=== PATIENT | male | born 1965 ===

== ENCOUNTER 2021-01-29 13:23 | Emergency (ER) | payer OTHER, SELFPAY | END 2021-01-29 17:04 | disposition home or self-care (01) | LOC: ERS 13:23 | DX: R60.0 Localized edema (principal); Z79.82 Long term (current) use of aspirin; Z79.899 Other long term (current) drug therapy | CPT/HCPCS: 36415; 71045; 80053; 81003; 82550; 83735; 83880; 84484; 85025; 93005 ==